=== PATIENT | male | born 2005 | race Caucasian/White ===

== ENCOUNTER 2025-06-15 04:51 | Emergency (ER) | payer MEDICAID ==
[~2025-06-15] VITALS: Ht 170.2 cm; Wt 87.0 kg
[2025-06-15 04:54] VITALS: TEMP 37.3; O2SAT 100
[2025-06-15] MEDS: ACETAMINOPHEN 500MG TABLET PO ONE (06:17)
[2025-06-15] MEDS: TETANUS, DIPHTHERIA, PERTUSSIS VAC/PF 0.5ML (>10YR OLD) IM ONE (06:20)
[2025-06-15] MEDS: BACITRACIN 14GM TUBE TOP ONE (06:27)
[2025-06-15] MEDS ORDERED: IBUP-2028 MT (06:32)
[2025-06-15 06:50] VITALS: BP 126/69; PULSE 115; RESP 20; O2SAT 96
== END 2025-06-15 06:58 | disposition home or self-care (01) ==
LOC: ER 04:51
DX: S02.2XXA Fracture of nasal bones, initial encounter for closed fracture (principal); S60.519A Abrasion of unspecified hand, initial encounter; Y04.0XXA Assault by unarmed brawl or fight, initial encounter; Y93.89 Activity, other specified; Y92.89 Other specified places as the place of occurrence of the external cause; Y99.8 Other external cause status
CPT/HCPCS: 70486; 71045; 73030; 73080; 90715; 99284